=== PATIENT | male | born 2000 | race Caucasian/White ===

== ENCOUNTER 2019-12-10 00:31 | Emergency (ER) | payer BC, SELFPAY ==
[2019-12-10 00:32] VITALS: BP 140/72; PULSE 55; RESP 16; TEMP 36.4; O2SAT 100; BMI 26.1
--- NOTE | 2019-12-10 01:44 | EKG12_ITS ---
Test Reason : CP Blood Pressure : / mmHG Vent. Rate : 053 BPM Atrial Rate : 053 BPM P-R Int : 162 ms QRS Dur : 094 ms QT Int : 420 ms P-R-T Axes : 013 018 033 degrees QTc Int : 394 ms Sinus bradycardia Otherwise normal ECG Confirmed by MARIAJOSE GROVE ([id number]), sound editor SADA CUNNINGHAM ([id number]) on 12/12/2019 9:27:00 AM Referred By: FATUMA Confirmed By:MARIAJOSE GROVE
--- NOTE | 2019-12-10 01:44 | RAD_ITS ---
STUDY: X-RAY CHEST REASON FOR EXAM: Male, 19 years old. C/O LEFT SHOULDER AND LEFT CHEST/UPPER BACK PAIN -- NKI TECHNIQUE: Frontal and lateral views of the chest. COMPARISON: None. FINDINGS: The lungs are clear and expanded. There is no demonstrated pleural abnormality. Normal size heart. Normal mediastinum and zainab. Normal visualized pulmonary arteries. Normal visualized aortic arch and descending thoracic aorta. Normal visualized thoracic spine. Normal visualized ribs, clavicles, and shoulders. There is no demonstrated abnormality of the visualized soft tissue structures of the upper abdomen. RAD/Chest PA and Lateral IMPRESSION: Normal x-ray examination of the chest. Electronically Signed: Monica Scott, at 2:11 EST Tel , Service support ,
--- NOTE | 2019-12-10 01:45 | ED.DCSUM_ITS ---
History of Present Illness Chief Complaint: Upper Extremity Injury Narrative: Patient is a 19-year-old male who presents with left-sided chest pain. This began shortly before presentation while at rest. He complains of sharp left- sided chest pain which is worse with inspiration. He also has some aching in his left shoulder. No shortness of breath. He was recently treated for pertussis with azithromycin. His cough has improved and he is no longer coughing. No fevers or vomiting. No history of DVT or pulmonary embolism. No known coagulopathies. He did have a 13-hour drive about 3 weeks ago and has had some mild discomfort in his right calf. No extremity edema. No history of prior similar symptoms. He does have some reproducible pain with palpation on his left chest. She otherwise denies recent illness or other medical history. Past Medical History - Allergies and Home Meds Allergies/Adverse Reactions: Allergies No Known Allergies Allergy (Verified 12/10/19 00:35) Primary Care Physician: Vinny Liriano MD [Primary Care Provider] - Past Medical History: - - Recently treated for pertussis Smoking Status: Never smoker Review of Systems All systems negative except as indicated General: Denies: Fever Eyes: Denies: Visual changes - bilaterally ENT: Denies: Bilateral ear pain Cardiovascular: Reports: Chest pain Respiratory: Denies: Dyspnea, Cough Gastrointestinal: Denies: Abdominal pain, Nausea, Vomiting Musculoskeletal: Reports: Extremity Pain Skin: Denies: Rash Neurological: Denies: Headache Psych: Denies: Depression Hematologic: Denies: Easy bruising, Easy bleeding Allergy: Denies: Uticaria Physical Exam Vital Signs/Narrative: Vital Signs Temp Pulse Resp BP Pulse Ox 12/10/19 00:32 97.6 F L 55 L 16 140/72 H 100 Inital Vital Signs reviewed: Yes General: Well nourished, Well developed Head: Normocephalic, Atraumatic Eyes: EOMI ENT: Moist mucous membranes Neck: Supple Cardiovascular: Regular rate, Regular rhythm Respiratory: No distress, CTA bilaterally, Chest tenderness - Mild left anterior chest tenderness Abdomen: Soft, Nontender Extremities: Nontender, No edema Skin: Normal color Neurological: Alert Psychological: Normal affect Diagnostic/Tx/Re-eval Impressions Chest X-Ray 12/10/19 01:44 IMPRESSION: Normal x-ray examination of the chest. Electronically Signed: Monica Scott, at 2:11 EST Tel , Service support , Chest CTA 12/10/19 02:15 IMPRESSION: There is no demonstrated pulmonary embolism or arterial dissection. Ill-defined nodular opacities are seen in both lungs more prominent in the right lower lobe suggesting septic emboli or patchy pneumonia. Follow-up is recommended to ensure resolution and to exclude metastasis. Electronically Signed: Monica Scott, at 3:41 EST Tel , Service support , 12/10/19 01:44 Chest PA and Lateral [RAD] Stat 12/10/19 02:15 CTA Chest W/WO Contrast [CT] Stat Laboratory Results 12/10/19 12/10/19 12/10/19 01:52 01:52 01:52 WBC 8.4 RBC 4.71 Hgb 14.2 Hct 40.7 MCV 86.4 MCH 30.1 MCHC 34.9 RDW Std Deviation 36.6 RDW Coeff of Piter 11.6 Plt Count 212 MPV 10.2 Immature Gran % (Auto) 0.100 Neut % (Auto) 68.8 Lymph % (Auto) 17.7 L [place] % (Auto) 10.4 H Eos % (Auto) 2.4 Baso % (Auto) 0.6 Absolute Neuts (auto) 5.8 Absolute Lymphs (auto) 1.48 Nucleated RBC % 0 D-Dimer Quant (PE/DVT) 0.55 H* Sodium 139 Potassium 3.9 Chloride 106 Carbon Dioxide 27.0 Anion Gap 6 BUN 21 H Creatinine 1.25 Estim Creat Clear Calc 100.40 Est GFR (MDRD) Af Amer 95 Est GFR (MDRD) Non-Af 78 BUN/Creatinine Ratio 16.8 Glucose 92 Calcium 9.6 Troponin I < 0.015 - Medical Decision Making EKG shows sinus bradycardia at a rate of 53, no acute ischemic changes. Given patient's report of some right calf pain with recent long car trip pulmonary embolism was considered. Patient was felt to be low risk so I initially obtained a d-dimer. Labs are normal except for minimal elevation of d-dimer. A chest x-ray shows no acute process. Given positive d-dimer a CTA of the chest was obtained. This shows no pulmonary embolism or arterial dissection but does show defined nodular opacities in the right lower lung. Concern was raised for septic emboli versus patchy pneumonia. Patient has no evidence to suggest that this would be related to septic emboli. He has no fever, cough, leukocytosis to suggest infectious process. He has no murmur to suggest endocarditis. Given that he was recently treated for pertussis this may still be a resolving changes related to that. However we will refer to pulmonology for follow-up. Patient understands to return for new or worsening symptoms. He was instructed on specific signs and symptoms to monitor for. All questions answered at bedside. Patient discharged. ED Disposition - Plan for ED Patient: Disposition: Home or Assisted Living Diagnosis: Abnormal chest CT, Chest pain Instructions: CHEST PAIN, Uncertain Cause Referrals: Vinny Liriano MD [Primary Care Provider] - Arnol Lucas MD [STAFF PHYSICIAN] - Additional Instructions: Your CAT scan showed an abnormality in the lower lung which could be related to resolving pneumonia. However it is important that you follow-up for further evaluation. You should return for any new or worsening symptoms including but not limited to fever, shortness of breath, recurrent chest pain.
[2019-12-10 01:53] VITALS: BP 110/74; PULSE 54; RESP 12; O2SAT 99
[2019-12-10 01:59] LABS: Absolute Lymphocyte Count 1.48 X10^3/uL (0.83-4.51); Absolute Neutrophil Count 5.8 X10^3/uL (2.0-7.7); Basophil# 0.05 X10^3/uL; Basophil% 0.6 % (0-1); Eosinophils% 2.4 % (0-5); Hematocrit 40.7 % (40-54); Hemoglobin 14.2 g/dL (13.0-16.5); Lymphocyte # 1.48 X10^3/ul (4.0); Lymphocyte % 17.7 % (19-41); Mean Corp Hgb Conc 34.9 g/dL (32-36); Mean Corpuscular Hgb 30.1 pg (27.0-32.0); Mean Corpuscular Volume 86.4 fL (80-94); Mean Platelet Vol. 10.2 fl (6.2-12.0); Monocyte# 0.87 X10^3/uL; Monocyte% 10.4 % (0-10); NRBC Flagged by Analyzer 0 % (0-5); Neutrophil # 5.77 X10^3/uL (2.7-7.7); Neutrophil % 68.8 % (47-70); Platelet Count 212 K/mm3 (150-450); RBC Distribution Width CV 11.6 % (11.6-14.6); RBC Distribution Width SD 36.6 fl (35.1-43.9); Red Blood Count 4.71 M/mm3 (4.6-6.2); White Blood Count 8.4 K/mm3 (4.4-11.0)
[2019-12-10 02:10] LABS: D-Dimer Quantitative (DVT/PE) 0.55 FEU/ug/m (0.27-0.49)
--- NOTE | 2019-12-10 02:15 | CT_ITS ---
STUDY: CTA CHEST REASON FOR EXAM: Male, 19 years old. ELEVATED D-DIMER. C/O LEFT SHOULDER AND CP LEFT SIDE X 1 HOUR RADIATION DOSAGE (If Supplied By Facility): CTDIvol = ( 8.87 ) mGy, DLP = ( 446.71 ) mGycm TECHNIQUE: The examination was performed with the intravenous administration of IV 100mL Isovue-370. Post-processing of the angiographic images was performed, with multiplanar reformation and 3D reconstruction. Individualized dose optimization techniques were used for this CT. COMPARISON: None. FINDINGS: Normal enhancement of the main pulmonary artery and right and left pulmonary arteries. Normal enhancement of the bilateral peripheral pulmonary arteries. There is no demonstrated pulmonary embolism. Normal thoracic aorta and visualized great vessels. There is no demonstrated aortic dissection. Normal heart and pericardium. Normal mediastinum. Normal hilar regions. Normal visualized trachea and bronchi. The lungs are well expanded. Ill-defined nodular opacities are seen in both lungs more prominent in the right lower lobe suggesting septic emboli or patchy pneumonia. Follow-up is recommended to ensure resolution and to exclude metastasis. Normal pleura. Normal chest wall structures. Normal osseous structures. Normal visualized upper abdomen. CT/CTA Chest W/WO Contrast IMPRESSION: There is no demonstrated pulmonary embolism or arterial dissection. Ill-defined nodular opacities are seen in both lungs more prominent in the right lower lobe suggesting septic emboli or patchy pneumonia. Follow-up is recommended to ensure resolution and to exclude metastasis. Electronically Signed: Monica Scott, at 3:41 EST Tel , Service support ,
[2019-12-10 02:18] LABS: Anion Gap 6 (5-15); BUN 21 mg/dL (7-18); BUN/Creat Ratio 16.8 RATIO (10-20); Calcium,Total 9.6 mg/dL (8.5-10.1); Chloride 106 mmol/L (98-107); Creatinine, Serum 1.25 mg/dL (0.70-1.30); EST Glomerular Filtration Rate 78 mL/min (>60); Est Glom Filt Rate - Afr Amer 95 mL/min (>60); Glucose 92 mg/dL (74-106); Potassium 3.9 mmol/L (3.5-5.1); Sodium Level 139 mmol/L (136-145)
[2019-12-10 03:52] VITALS: BP 114/74; PULSE 56; RESP 20; O2SAT 98
== END 2019-12-10 03:57 | disposition home or self-care (01) ==
PROVIDERS: Emergency Provider Emergency Medicine; PCP Pediatrics
DX: R07.1 Chest pain on breathing (principal); R91.8 Other nonspecific abnormal finding of lung field
CPT/HCPCS: 71046; 71275; 80048; 84484; 85025; 85379; 93005; 99283; Q9967

== ENCOUNTER → 2020-01-02 13:42 | Outpatient (CLI) | payer BC, SELFPAY ==
[2019-12-10 12:21] VITALS: BMI 25.9
--- NOTE | 2020-01-02 13:47 | EKG12_ITS ---
Test Reason : SOB Blood Pressure : / mmHG Vent. Rate : 056 BPM Atrial Rate : 056 BPM P-R Int : 148 ms QRS Dur : 092 ms QT Int : 404 ms P-R-T Axes : 023 028 037 degrees QTc Int : 389 ms Sinus bradycardia Otherwise normal ECG Confirmed by JEFFERY ZHANG, GABRIELE ([id number]), state editor SADA CUNNINGHAM ([id number]) on 01/07/2020 1:13:31 PM Referred By: Don Vanessa Confirmed By:GABRIELE GIL MD
--- NOTE | 2020-01-02 13:49 | RAD_ITS ---
EXAM DESCRIPTION: Normal PA and lateral chest CLINICAL HISTORY: 19 years Male, dyspnea dyspnea COMPARISON: Previous chest obtained 12/10/2019 FINDINGS: The thorax is intact. The heart and mediastinum appear to be within normal limits. The lungs appear to be well areated without evidence of pneumonic consolidation or pleural effusion. RAD/Chest PA and Lateral IMPRESSION: Normal PA and lateral chest Electronically Signed: Shemar Felix, at 16:19 EST Tel , Service support ,
== END ==
PROVIDERS: PCP Pediatrics; Referring Provider Family Medicine; Visit Provider Family Medicine
DX: R06.00 Dyspnea, unspecified (principal)
CPT/HCPCS: 71046; 93005

== ENCOUNTER 2020-01-03 04:06 | Observation (INO) | payer BC, SELFPAY ==
[2019-12-10 12:21] VITALS: BMI 25.9
[2020-01-03] VITALS (10 sets, daily range): BP systolic 109–127; BP diastolic 61–82; PULSE 56–88; RESP 14–24; TEMP 36.2–37; O2SAT 98–100; BMI 25.8; BMI 25.2
--- NOTE | 2020-01-03 04:16 | EKG12_ITS ---
Test Reason : CP Blood Pressure : / mmHG Vent. Rate : 066 BPM Atrial Rate : 066 BPM P-R Int : 150 ms QRS Dur : 090 ms QT Int : 396 ms P-R-T Axes : 013 027 039 degrees QTc Int : 415 ms Normal sinus rhythm with sinus arrhythmia Minimal voltage criteria for LVH, may be normal variant Borderline ECG Confirmed by JEFFERY ZHANG, GABRIELE ([id number]), food editor HERMINIA WILKINS ([id number]) on 01/05/2020 10:11:28 AM Referred By: MR Confirmed By:GABRIELE GIL MD
[2020-01-03] MEDS: Aspirin 81 MG TAB.CHEW 324 MG PO (04:23)
[2020-01-03 04:39] LABS: Absolute Lymphocyte Count 1.68 X10^3/uL (0.83-4.51); Absolute Neutrophil Count 8.5 X10^3/uL (2.0-7.7); Basophil# 0.08 X10^3/uL; Basophil% 0.6 % (0-1); Eosinophil# 1.64 X10^3/uL; Eosinophils% 12.5 % (0-5); Hemoglobin 13.3 g/dL (13.0-16.5); Lymphocyte # 1.68 X10^3/ul (4.0); Lymphocyte % 12.8 % (19-41); Mean Corp Hgb Conc 33.3 g/dL (32-36); Mean Corpuscular Hgb 28.9 pg (27.0-32.0); Monocyte# 1.12 X10^3/uL; Monocyte% 8.5 % (0-10); NRBC Flagged by Analyzer 0 % (0-5); Neutrophil # 8.51 X10^3/uL (2.7-7.7); Neutrophil % 65.1 % (47-70); Platelet Count 252 K/mm3 (150-450); RBC Distribution Width CV 11.5 % (11.6-14.6); RBC Distribution Width SD 36.2 fl (35.1-43.9); White Blood Count 13.1 K/mm3 (4.4-11.0)
[2020-01-03 04:47] LABS: D-Dimer Quantitative (DVT/PE) 3.48 FEU/ug/m (0.27-0.49)
[2020-01-03 04:54] LABS: Anion Gap 6 (5-15); BUN 19 mg/dL (7-18); BUN/Creat Ratio 17.3 RATIO (10-20); Chloride 102 mmol/L (98-107); EST Glomerular Filtration Rate 91 mL/min (>60); Erythrocyte Sedimentation Rate 13 mm/hr (0-15); Est Glom Filt Rate - Afr Amer 110 mL/min (>60); Estimated Creatinine Clearance 114.09 ml/min; Glucose 115 mg/dL (74-106); Potassium 4.2 mmol/L (3.5-5.1); Sodium Level 137 mmol/L (136-145)
--- NOTE | 2020-01-03 05:05 | CT_ITS ---
HISTORY: + D-DIMER, NEW HEART MURMUR, PLEURITIC PAIN, PRIOR CT SHOWED ILL DEFINED NODULAR OPACITIES B/L SUGGESTING SEPTIC EMBOLI VS. PATCHY PNEUMONIA VS. NEOPLASM. ADDITIONAL HISTORY: None provided. TECHNIQUE: CT angiogram images of the chest were obtained with 100 mL Isovue-370 IV contrast as per pulmonary angiogram protocol. 3D MIP images used to aid in evaluation for pulmonary embolism. Number of images including paperwork: 1162 A radiation dose optimization technique was used for this scan. COMPARISON: 12/10/2019 FINDINGS: PULMONARY ARTERIES: No pulmonary arterial filling defects. AORTA AND GREAT VESSELS: No dissection. HEART/PERICARDIUM: Normal heart size. Small amount of pericardial fluid. MEDIASTINUM: Unremarkable. ADENOPATHY: Mild mediastinal and right hilar adenopathy. THYROID: Unremarkable visualized portions. LUNG PARENCHYMA: No dense consolidation. Dependent bilateral lower lobe opacities, left greater than right, suggestive of atelectasis. Numerous small peripheral lung nodules are seen measuring 3 mm or less in size, decreased compared to the prior examination.. PLEURAL SPACES: Trace right pleural fluid. Small left pleural effusion. UPPER ABDOMEN: Unremarkable. OSSEOUS AND SOFT TISSUE STRUCTURES: No acute skeletal findings. CT/CTA Chest W/WO Contrast IMPRESSION: 1. No pulmonary embolus detected. 2. Decrease in bilateral lung nodules, likely infectious in nature. 3. Small bilateral pleural effusions. Individualized dose optimization techniques were used for this CT. at 0605 Reported and signed by: Lilibeth Mejia MD Electronically Signed: Lilibeth Mejia MD at 6:05 EST Tel , Service support ,
--- NOTE | 2020-01-03 05:28 | HP.PCM_ITS ---
History of Present Illness Date of Admission: 01/03/20 Chief Complaint: chest pain The patient is a 19 year old M with no significant PMH who was admitted via the ED with a complaint of chest pain. Chest pain had been going on for a few days; it was retrosternal, sharp, aggravated by exertion and and by laying down flat and relieved by sitting up and resting. He has not had pain like this before. He denied any assisted shortness of breath, palpitations, dizziness, nausea vomiting, fever chills or abdominal pain. Review of systems otherwise negative. Patient says he had whooping cough in September 2019 and he started having chest pain afterwards. He was seen in the ED in early December 2019 where a CTA done was negative for PE but showed no low opacities and a CTA which could be infectious versus inflammatory. He was therefore referred to pulmonology. He saw pulmonology on 12/11/2019 and he had an exhaled nitric oxide level in the office, and had no symptoms or signs of systemic infection that would raise concern for septic pulmonary emboli. Plan per pulmonology was repeated noncontrast CT scan in 2 months time. At the time he was seen in the ED on December 07, 2019, it was categorically documented that patient did not have a murmur at that time. On admission in the ED, patient was found to have temperature of 97.1 with blood pressure 127/82 respiratory rate of 24. Pulse rate was 64. Chemistry was unremarkable initial troponin was negative. CBC showed WBC of 13.1 was otherwise unremarkable. EKG done showed no acute ST changes. CTA was done and results were pending blood per my independent review showed no evidence of a PE. He has been admitted to be managed for chest pain of unclear etiology. [] Past Medical History Allergies No Known Allergies Allergy (Verified 12/10/19 00:35) Home Medications: Ambulatory Orders Medication Instructions Recorded NK 12/10/19 Surgical History: no surgical history Psychiatric History: No pertinent psych hx Lives: Roommate Smoking Status: Never smoker Tobacco Use: Non-smoker Alcohol: None Drugs: None - *Family History Maternal History Items: No pertinent history Paternal History Items: No pertinent history Review of Systems Constitutional: Denies: Chills, Fever, Malaise, Weakness, Weight Change Eyes: Denies: Blurred vision HEENT: Denies: Head Aches, Sinus Congestion, Sinus Drainage Cardiovascular: Reports: Chest Pain. Denies: Chest Pressure, Chest Tightness, Edema, Heaviness, Light Headedness, Orthopnea, Palpitations, Paroxysmal Noc. Dyspnea, Syncope Respiratory: Denies: Cough, Shortness of Breath, Shortness of breath at rest, Shortness of breath upon exertion, Sputum production Gastrointestinal: Denies: Abdominal Pain, Nausea, Vomiting Genitourinary: Denies: Dysuria Musculoskeletal: Denies: Joint Pain, Joint Tenderness Skin: Denies: Rash, Wounds Neurological: Denies: Numbness, Tingling, Focal weakness Psychiatric: Denies: Anxiety, Depression, Homicidal Ideations, Suicidal Ideations Hematologic/ Lymphatic: Denies: Easy Bruising, Easy Bleeding VTE Information - Inpt Only VTE Present on Admission: No VTE Pharm Prophylaxis ordered?: Yes - Physical Exam Vitals/I&O's: Vital Signs Temp Pulse Resp BP Pulse Ox 97.1 F L 64 24 H 127/82 H 100 01/03/20 04:07 01/03/20 04:07 01/03/20 04:07 01/03/20 04:07 01/03/20 04:07 Oxygen Delivery Method Room Air Weight: 185 lb 6.54 oz Body Mass Index (BMI) 25.8 General: Alert, Oriented x3, Cooperative HEENT: Atraumatic, PERRLA, EOMI, Normocephalic Oral: Dry Mucosa Neck: Supple, No JVD, Negative Carotid Bruits Lungs: Clear to auscultation, Normal air movement, No rhonchi, No wheeze, No rales Cardiovascular: Regular rate, Regular Rhythm, Normal S1, Normal S2, - - grade 2- 3 systolic murmur audible in tricupid and mitral valve areas, loudest in mitral valve area, nonradiating Abdomen: Bowel Sounds Present, Soft, Non Tender, Non-Distended, No Hepato- splenomegaly Extremities: No clubbing, No cyanosis, No edema, Capillary Refill Less than 3 Seconds Skin: No rashes, No breakdown Musculoskeletal: No Tenderness to Palpation of Joints or Extremities Lymphatic: No Cervical, Supraclavicular, or Inguinal Adenopathy Neurological: Cranial nerves II-XII grossly intact, Neuro grossly intact, Motor Exam 5/5 strength throughout Psych/Mental Status: Normal Affect, Appropriate, Alert and oriented to time, place, person, mood and affect Laboratory Results 01/03/20 04:30: WBC 13.1 H, RBC 4.60, Hgb 13.3, Hct 40.0, MCV 87.0, MCH 28.9, MCHC 33.3, RDW Std Deviation 36.2, RDW Coeff of Piter 11.5 L, Plt Count 252, MPV 10.0, Immature Gran % (Auto) 0.500, Neut % (Auto) 65.1, Lymph % (Auto) 12.8 L, [place] % (Auto) 8.5, Eos % (Auto) 12.5 H, Baso % (Auto) 0.6, Absolute Neuts (auto) 8.5 H, Absolute Lymphs (auto) 1.68, Nucleated RBC % 0, ESR 13 01/03/20 04:30: D-Dimer Quant (PE/DVT) 3.48 H* 01/03/20 04:30: Sodium 137, Potassium 4.2, Chloride 102, Carbon Dioxide 29.0, Anion Gap 6, BUN 19 H, Creatinine 1.10, Estim Creat Clear Calc 114.09, Est GFR (MDRD) Af Amer 110, Est GFR (MDRD) Non-Af 91, BUN/Creatinine Ratio 17.3, Glucose 115 H, Calcium 9.0, Troponin I < 0.015 Assessment/Plan 19 y/o admitted with a complaint of chest pain. 1. Chest pain and new onset murmur * suspicious for infective endocarditis * was seen on December 07 2019, with CTA then showing ill-defined nodular opacities in both lungs more prominent in the right lower lobe suggesting septic emboli or patchy pneumonia. He followed up with pulmonology who did not think that patient would have septic emboli. Infectious pathology. Recommended follow-up CT in 2 months. * Patient now has new onset murmur loudest in the mitral valve area there is also audible in the tricuspid area. He has no history of drug use. * Will admit to PCU. * To have 2D echo done today to evaluate for vegetations on the valves. * CTA done and reading is pending. * Another consideration is also pericarditis as patient states pain is worse with lying down and relieved by sitting up. Will await 2D echo findings and consider starting high-dose aspirin if infective endocarditis is ruled out. * 2. SIRS criteria * WBC is elevated at 13 and patient is tachypneic so SIRS criteria is 2 out of 4. There is no clear evidence of infection now. Will monitor * Will get blood cultures. * DVT prophylaxis: Lovenox Code Visit OBSV E&M: 73420 Initial observation care L3
--- NOTE | 2020-01-03 06:04 | ED.VIS.CHEST ---
History of Present Illness Chief Complaint: Chest Pain Informant: Patient Narrative: Patient presenting for evaluation secondary to chest pain. Patient reports that he had a history of having pertussis back in September. Since then he has been dealing with a cough and intermittent chest pain. Patient was actually seen in the emergency department for this in early December, had a positive d-dimer and had a CT angiogram. CT angiogram demonstrated him to have some abnormal infiltrates which were concerning for multilobar pneumonia versus the possibility of septic emboli. He had subsequent follow-up with pulmonology and that felt this to be resolving pneumonia, and he was recommended a 2-month follow-up CT scan. Patient states that he has been having progressively worsening chest pain however. He states that this is sharp and pleuritic in nature. He states that it causes him shortness of breath due to a feeling of a inability to take a deep breath. He denies any fevers chills night sweats or unintended weight loss. Patient denies that he has been having any sort of hemoptysis. He denies any recent new infectious symptoms such as fever. Patient denies any DVT or PE risk factors. He denies any cardiovascular risk factors. Past Medical History - Allergies and Home Meds Allergies/Adverse Reactions: Allergies No Known Allergies Allergy (Verified 12/10/19 00:35) Primary Care Physician: Lukas Tee MD [Primary Care Provider] - Past Medical History: - - Past history of pertussis Surgical History: no surgical history Lives: Roommate Smoking Status: Never smoker Alcohol: None Drugs: None - Family History Maternal Family History: Reports: No pertinent history Paternal Family History: Reports: No pertinent history Review of Systems All systems negative except as indicated General: Denies: Chills, Fever, Malaise, Weight loss Eyes: Denies: Visual changes - bilaterally, Diplopia ENT: Denies: Rhinorrhea, Sore throat Cardiovascular: Reports: Chest pain Respiratory: Reports: Dyspnea Gastrointestinal: Denies: Abdominal pain, Nausea, Vomiting, Diarrhea, Melena, Hematochezia Genitourinary: Denies: Dysuria, Hematuria, Frequency Musculoskeletal: Denies: Back pain, Extremity Pain Skin: Denies: Rash, Wounds Neurological: Denies: Headache, Weakness, Numbness Physical Exam Vital Signs/Narrative: Vital Signs Temp Pulse Resp BP Pulse Ox 01/03/20 04:07 97.1 F L 64 24 H 127/82 H 100 Inital Vital Signs reviewed: Yes General: Well nourished, Well developed, No Acute Distress Head: Normocephalic, Atraumatic Eyes: Perrl, EOMI ENT: Moist mucous membranes, No rhinorrhea Neck: Supple, Nontender Cardiovascular: Murmur - 3 out of 6 systolic murmur is noted Respiratory: No distress, CTA bilaterally, Chest nontender Abdomen: Soft, Nontender, Nondistended, Normal bowel sounds Back: Nontender, Normal Inspection Extremities: Nontender, No edema Skin: Normal color, No rash Neurological: Alert, Oriented x3, Cranial nerves II-XII grossly intact, Normal Strength, Normal Sensation Psychological: Normal affect, Normal Mood Diagnostic/Tx/Re-eval Chest X-Ray - ED: 2 View, Read by ED Physician, Read by Radiologist, - - X-ray performed yesterday demonstrates no evidence of acute process by my personal interpretation as well as radiology - EKG Initial EKG Interpretation: - - Sinus rhythm at 66 with evidence of some LVH but isoelectric ST segments normal T waves no evidence of acute ischemia or arrhythmia. - Medical Decision Making Patient presented secondary to chest pain. I reviewed the patient's records, he has had a reasonable work-up recently, but states that his pain is getting worse. I also reviewed his physical exams, and they specifically stated that the patient does not have any cardiac murmurs and I very clearly can hear the patient has a cardiac murmur on this visit. Repeat work-up was obtained including d-dimer. CBC chemistry troponin were unremarkable, but d-dimer was found to be elevated. I reviewed the patient's chest x-ray that was performed yesterday and it is negative. CT angiogram of the chest was performed which by my personal review does not seem to show any evidence of PE but does demonstrate evidence of a left-sided pleural effusion which appears to be new. Given the patient's pleural effusion worsening of chest pain as well as a new onset of cardiac murmur I believe that he requires admission. I discussed this with hospitalist and the patient will be admitted. ED Disposition - Plan for ED Patient: Disposition: Acute Care Hospital [facility] Diagnosis: Chest pain, Heart murmur, Pleural effusion
--- NOTE | 2020-01-03 06:52 | EKG12_ITS ---
Test Reason : CP Blood Pressure : / mmHG Vent. Rate : 064 BPM Atrial Rate : 064 BPM P-R Int : 152 ms QRS Dur : 092 ms QT Int : 390 ms P-R-T Axes : 022 039 053 degrees QTc Int : 402 ms Normal sinus rhythm Normal ECG Confirmed by JONE ZHANG, JEREMY ([id number]), proposal editor SADA CUNNINGHAM ([id number]) on 01/07/2020 2:00:32 PM Referred By: KELLI Confirmed By:JEREMY BECERRIL MD
[2020-01-03 11:19] LABS: AST(SGOT) 15 U/L (15-37); Alanine Aminotransfer ALT/SGPT 20 U/L (16-61); Albumin, Serum 3.9 g/dL (3.2-5.0); Alkaline Phosphatase 117 U/L (45-117); Bilirubin, Direct 0.18 mg/dL (0.00-0.30); GGTP 15 U/L (15-85); Globulin 3.6 g/dL (2.2-4.2); Protein, Total 7.5 g/dL (6.4-8.2)
--- NOTE | 2020-01-03 11:21 | PN_ITS ---
Patient Problems: Active and Suspected Problems (Last Reviewed 12/11/19 @ 07:19 by Leena Martínez) Chest pain (Acute) Heart murmur (Acute) Pleural effusion (Acute) Reason for Visit: Chest pain Objective: Complaint of chest pain, midsternal to left side with radiation to left side of the neck and ears. Patient also had new onset of murmur. Had seen production broacher for abnormal CT chest was told noninfectious. Vitals/I&O's: Vital Signs Temp Pulse Resp BP Pulse Ox 98.6 F 56 L 18 119/75 98 01/03/20 07:03 01/03/20 07:04 01/03/20 07:03 01/03/20 07:03 01/03/20 08:37 Oxygen Delivery Method Room Air Weight: 180 lb 8.937 oz Body Mass Index (BMI) 25.2 General: Alert, Oriented x3, Cooperative HEENT: Atraumatic, PERRLA, EOMI, Normocephalic Neck: Supple, No JVD, Negative Carotid Bruits Lungs: Clear to auscultation, No rhonchi, No wheeze, No rales, Diminished Cardiovascular: Regular rate, Regular Rhythm, Normal S1, Normal S2, Murmur - Systolic murmur present over apex and left lower sternal border Abdomen: Bowel Sounds Present, Soft, Non Tender Extremities: No edema, Capillary Refill Less than 3 Seconds Skin: No rashes, No breakdown Musculoskeletal: No Tenderness to Palpation of Joints or Extremities Neurological: Cranial nerves II-XII grossly intact Psych/Mental Status: Normal Affect, Appropriate Laboratory Results 01/03/20 04:30: WBC 13.1 H, RBC 4.60, Hgb 13.3, Hct 40.0, MCV 87.0, MCH 28.9, MCHC 33.3, RDW Std Deviation 36.2, RDW Coeff of Piter 11.5 L, Plt Count 252, MPV 10.0, Immature Gran % (Auto) 0.500, Neut % (Auto) 65.1, Lymph % (Auto) 12.8 L, [place] % (Auto) 8.5, Eos % (Auto) 12.5 H, Baso % (Auto) 0.6, Absolute Neuts (auto) 8.5 H, Absolute Lymphs (auto) 1.68, Nucleated RBC % 0, ESR 13 01/03/20 04:30: D-Dimer Quant (PE/DVT) 3.48 H* 01/03/20 04:30: Sodium 137, Potassium 4.2, Chloride 102, Carbon Dioxide 29.0, Anion Gap 6, BUN 19 H, Creatinine 1.10, Estim Creat Clear Calc 114.09, Est GFR (MDRD) Af Amer 110, Est GFR (MDRD) Non-Af 91, BUN/Creatinine Ratio 17.3, Glucose 115 H, Calcium 9.0, Troponin I < 0.015 01/03/20 08:00: Troponin I < 0.015 01/03/20 10:20: Troponin I < 0.015 01/03/20 10:20: Total Bilirubin 0.70, Direct Bilirubin 0.18, GGT 15, AST 15, ALT 20, Alkaline Phosphatase 117, Total Protein 7.5, Albumin 3.9, Globulin 3.6 01/03/20 10:50: Urine Opiates Screen Pending, Urine Methadone Screen Pending, Ur Barbiturates Screen Pending, Ur Phencyclidine Scrn Pending, Ur Amphetamines Screen Pending, U Methamphetamin-MDMA Pending, U Benzodiazepines Scrn Pending, Urine Cocaine Screen Pending, U Cannabinoids Screen Pending, Ur Drug Screen Comment Current Medications Aspirin (Ecotrin) 81 mg PO DAILY@0800 [place]ENCHO Glucagon () 1 mg IM .X1 PRN PRN Reason: Hypoglycemia Sodium Chloride () 250 mls @ 15 mls/hr IV .[id number] PRN PRN Reason: Saline Flush Sodium Chloride () 250 mls @ 15 mls/hr IV .[id number] PRN PRN Reason: Additional IVPB Infusion Dextrose (Dextrose 10%-Water) 250 mls @ 999 mls/hr IV .Q16M PRN; Protocol PRN Reason: HYPOGLYCEMIA Ibuprofen (Motrin) 400 mg PO Q4H PRN PRN PRN Reason: Pain Score 1-10/Temp > 100.7 F Nitroglycerin (Nitrostat) 0.4 mg SUBLINGUAL Q5M PRN PRN Reason: CARDIAC/CHEST PAIN Ondansetron HCl (Zofran) 4 mg IV Q8H PRN PRN PRN Reason: NAUSEA/VOMITING Sodium Chloride () 10 - 40 ml IV UD PRN PRN Reason: SALINE FLUSH STROKE Vital Signs/Narrative: Vital Signs Pulse Ox 01/03/20 08:37 98 Medical Necessity - Tobacco Use Smoking Status: Never smoker Tobacco Use: Non-smoker Assessment/Plan All Active Problems (Last Reviewed 12/11/19 @ 07:19 by Leena Martínez) Chest pain (Acute) Heart murmur (Acute) Pleural effusion (Acute) This is a 19 y/o admitted with a complaint of midsternal chest pain with radiation to neck and left ear. Chest pain. 1. Chest pain and new onset murmur: Patient is being admitted in PCU. Serial troponin enzymes are negative. 2D echo was done 2D echo shows EF 65% with a normal lateral systolic function, mild MR, mild TR. Mild pulmonary insufficiency. Small left pleural effusion. RVSP 24 mmHg. There is no obvious vegetation found. Earlier patient was seen in pulmonary clinic on December 07, 2019 with CTA finding of ill-defined nodular opacities in both lungs more prominent in the right lower lobe suggesting septic emboli or patchy pneumonia. He followed up with pulmonology who did not think that patient would have septic emboli. Recommended follow-up CT in [address] abdomen was done and shows decreasing bilateral lung nodules likely infectious in nature. Small bilateral pleural effusions. * * 2. SIRS criteria with leukocytosis and tachypnea: Currently patient is on baseline no fever or chills. No hypoxia or tachypnea. No clear evidence of infection. Monitor temperature. * Blood culture ordered. If patient spikes temperature will need start of antibiotic. DVT prophylaxis: Lovenox Clinical Impression(s) from Imaging Studies Chest CTA 01/03/20 05:05 IMPRESSION: 1. No pulmonary embolus detected. 2. Decrease in bilateral lung nodules, likely infectious in nature. 3. Small bilateral pleural effusions. Individualized dose optimization techniques were used for this CT. * Laboratory Results 01/03/20 04:30: WBC 13.1 H, RBC 4.60, Hgb 13.3, Hct 40.0, MCV 87.0, MCH 28.9, MCHC 33.3, RDW Std Deviation 36.2, RDW Coeff of Piter 11.5 L, Plt Count 252, MPV 10.0, Immature Gran % (Auto) 0.500, Neut % (Auto) 65.1, Lymph % (Auto) 12.8 L, [place] % (Auto) 8.5, Eos % (Auto) 12.5 H, Baso % (Auto) 0.6, Absolute Neuts (auto) 8.5 H, Absolute Lymphs (auto) 1.68, Nucleated RBC % 0, ESR 13 01/03/20 04:30: D-Dimer Quant (PE/DVT) 3.48 H* 01/03/20 04:30: Sodium 137, Potassium 4.2, Chloride 102, Carbon Dioxide 29.0, Anion Gap 6, BUN 19 H, Creatinine 1.10, Estim Creat Clear Calc 114.09, Est GFR (MDRD) Af Amer 110, Est GFR (MDRD) Non-Af 91, BUN/Creatinine Ratio 17.3, Glucose 115 H, Calcium 9.0, Troponin I < 0.015 01/03/20 08:00: Troponin I < 0.015 01/03/20 10:20: Troponin I < 0.015 01/03/20 10:20: Total Bilirubin 0.70, Direct Bilirubin 0.18, GGT 15, AST 15, ALT 20, Alkaline Phosphatase 117, Total Protein 7.5, Albumin 3.9, Globulin 3.6 01/03/20 10:50: Urine Opiates Screen NEGATIVE, Urine Methadone Screen NEGATIVE, Ur Barbiturates Screen NEGATIVE, Ur Phencyclidine Scrn NEGATIVE, Ur Amphetamines Screen NEGATIVE, U Methamphetamin-MDMA NEGATIVE, U Benzodiazepines Scrn NEGATIVE, Urine Cocaine Screen NEGATIVE, U Cannabinoids Screen NEGATIVE, Ur Drug Screen Comment
[2020-01-03 11:27] LABS: Amphetamine Urine VISTA NEGATIVE (<1000 ng/mL); Barbiturate Urine VISTA NEGATIVE (< 200 ng/mL); Benzodiazepine Urine VISTA NEGATIVE (< 200 ng/mL); Cocaine Urine VISTA NEGATIVE (< 300 ng/mL); Ecstacy Urine VISTA NEGATIVE (< 500 ng/mL); Methadone Urine VISTA NEGATIVE (< 300 ng/mL); PCP Urine VISTA NEGATIVE (< 25 ng/mL); THC Urine VISTA NEGATIVE (< 50 ng/mL); Vista UDS pH Range 6
--- NOTE | 2020-01-03 16:03 | CON.PCM_ITS ---
Problem List (1) Chest pain Status: Acute (2) Heart murmur Status: Acute (3) Pleural effusion Status: Acute Reason for Consult Date of Consultation: 01/03/20 History of Present Illness: The patient is a 19 year old white male who is previously been healthy until the fall 2018 at which time he was diagnosed with pertussis/whooping cough who presents for evaluation of recurrent chest discomfort and subsequent concerns of a cardiac murmur and a pleural effusion. He states that in the fall 2018 based upon ongoing concerns with some respiratory illness and coughing he was subsequently diagnosed with pertussis/whooping cough. He states he was treated. This year he has been having episodes of left-sided chest discomfort. He notes his left-sided chest discomfort tends to increase with deep inspiration and changes in position including at times being in the supine position. He states when he is sitting upright and not taking deep breaths he feels more comforta ble. He describes his discomfort as a sharp discomfort that can radiate from his lower rib cage area up to his neck, left shoulder, and left upper extremity. He states he has not had any significant sensation of shortness of breath nor has he had ongoing coughing or sputum production. There is been no associated nausea, emesis, or diarrhea. He has had no ongoing diaphoresis, palpitations, near-syncope, or syncope. There is been no fever, chills, or night sweats. He also denies any findings such as visual changes, rashes, and has not been noted on examination to demonstrate any findings compatible with splinter hemorrhages. He also believes he has been A. fib our. He states that he has had waxing and waning discomforts. He notes when he ceased his physical activity, which includes [employer] baseball practice, he felt better for a brief period of time. However after resuming practice he states his discomfort has gotten worse again. Based upon his worsening discomfort he presented back to the hospital for reevaluation. He was evaluated by the emergency department staff and internal medicine. He had troponin I levels performed which were negative. An ECG demonstrated sinus rhythm with no acute ECG changes. He had follow-up chest x-ray/chest CT scan. On his chest CT scan there were concerns of bilateral pleural effusions with the left being greater than the right. Based upon concerns of the finding of a cardiac murmur he had a transthoracic echocardiogram performed. The results are as noted below. [] Past Medical History Allergies/Adverse Reactions: Allergies No Known Allergies Allergy (Verified 12/10/19 00:35) Home Medications: Ambulatory Orders Medication Instructions Recorded NK 12/10/19 Surgical History: no surgical history Psychiatric History: No pertinent psych hx - *Family History Maternal History Items: No pertinent history Paternal History Items: No pertinent history Lives: Roommate Smoking Status: Never smoker Tobacco Use: Non-smoker Alcohol: None Drugs: None Review of Systems - Review of Systems General: Denies: Fever, Night Sweats, Fatigue Cardiovascular: Reports: Chest Discomfort - Chest discomfort: Sharp: With deep inspiration. Denies: Shortness of Breath, Orthopnea, PND, Peripheral Edema, Palpitations, Lightheadedness, Dizziness, Near Syncope, Syncope Respiratory: Denies: Cough, Sputum Production, Hemoptysis Gastrointestinal: Denies: Hematemesis, Hematochezia, Melena Genitourinary: Denies: Dysuria, Hematuria Skin: Denies: Rash Subjectve: This is a healthy-appearing 19-year-old white male who appears to be resting comfortably at this time in no acute distress. Objective: Vital Signs Temp Pulse Resp BP Pulse Ox 98.1 F 88 14 109/61 99 01/03/20 13:00 01/03/20 14:55 01/03/20 13:00 01/03/20 13:00 01/03/20 13:00 Oxygen Delivery Method Room Air Weight: 180 lb 8.937 oz Body Mass Index (BMI) 25.2 Intake and Output for Last 24 Hours 01/01/20 01/02/20 01/03/20 23:59 23:59 23:59 Intake Total 480 / 480 Balance 480 / 480 General: Healthy Appearing, Awake, Alert, Oriented x 3, Cooperative, No Acute Distress HEENT: Atraumatic, Normocephalic, PERRL, EOMI, Sclera Non Icteric Oral: Moist Mucosa Neck: Supple, Good ROM, No JVD Lungs: Diminished Left Base Cardiovascular: Regular Rhythm, Normal S1, Normal S2 Murmur Murmur: Grade 2/6, Soft, Holosystolic, LLSB, [place] Vascular: No Carotid Bruits Abdomen: Bowel Sounds Present, Soft, Non Tender Extremities: No Cyanosis, No Clubbing, No edema, - - No obvious splinter hemorrhages appreciated Skin: No Rashes Neurological: No Focal Motor or Sensory Deficit Psych/Mental Status: Appropriate 01/03/20 04:30: WBC 13.1 H, RBC 4.60, Hgb 13.3, Hct 40.0, MCV 87.0, MCH 28.9, MCHC 33.3, Plt Count 252, MPV 10.0, Immature Gran % (Auto) 0.500, Neut % (Auto) 65.1, Lymph % (Auto) 12.8 L, [place] % (Auto) 8.5, Eos % (Auto) 12.5 H, Baso % (Auto) 0.6, Absolute Neuts (auto) 8.5 H, Nucleated RBC % 0 01/03/20 04:30: D-Dimer Quant (PE/DVT) 3.48 H* 01/03/20 04:30: Sodium 137, Potassium 4.2, Chloride 102, Carbon Dioxide 29.0, Anion Gap 6, BUN 19 H, Creatinine 1.10, Est GFR (MDRD) Af Amer 110, Est GFR (MDRD) Non-Af 91, BUN/Creatinine Ratio 17.3, Glucose 115 H, Calcium 9.0, Troponin I < 0.015 01/03/20 08:00: Troponin I < 0.015 01/03/20 10:20: Troponin I < 0.015 01/03/20 10:20: Total Bilirubin 0.70, Direct Bilirubin 0.18 Rhythm: Sinus rhythm EKG: Sinus rhythm; no acute ECG changes ECHO: 01-03-2020 Normal left ventricular size, wall motion, and systolic function The estimated LVEF is 65% Mild MR/TR/TN Echo lucency compatible with a pleural effusion Estimated RV systolic pressure 24 mmHg No evidence of decreased diastolic compliance CXR: 01-02-2020 FINDINGS: The thorax is intact. The heart and mediastinum appear to be within normal limits. The lungs appear to be well areated without evidence of pneumonic consolidation or pleural effusion. Chest CT Scan: 01-03-2020 FINDINGS: PULMONARY ARTERIES: No pulmonary arterial filling defects. AORTA AND GREAT VESSELS: No dissection. HEART/PERICARDIUM: Normal heart size. Small amount of pericardial fluid. MEDIASTINUM: Unremarkable. ADENOPATHY: Mild mediastinal and right hilar adenopathy. THYROID: Unremarkable visualized portions. LUNG PARENCHYMA: No dense consolidation. Dependent bilateral lower lobe opacities, left greater than right, suggestive of atelectasis. Numerous small peripheral lung nodules are seen measuring 3 mm or less in size, decreased compared to the prior examination.. PLEURAL SPACES: Trace right pleural fluid. Small left pleural effusion. UPPER ABDOMEN: Unremarkable. OSSEOUS AND SOFT TISSUE STRUCTURES: No acute skeletal findings. Assessment/Plan 1. Chest pain The patient has an atypical chest discomfort. It is atypical from a cardiac standpoint as it is brought out by inspiration and/or change in position and has a sharp characteristic to it. These symptoms, especially in light of his recent pulmonary related issue and findings of bilateral pleural effusions being more prominent on the left than the right, may be compatible with an underlying pleuritic component. His chest discomfort, despite the positional changes reported, does not appear to be classic for acute pericarditis at this time. So, he does not appear to have any obvious findings on examination such as a pericardial rub and no obvious findings on electrocardiogram or changes in his underlying cardiac enzymes that would go along with the diagnosis of acute pericarditis at this time. Also, his clinical presentation does not appear classic for concerns of underlying premature CAD or congenital coronary anomalies that would be bringing out symptoms of myocardial ischemia or other cardiovascular related symptoms/events at rest or with exertion. He has been an active young man and plays sports and is never had a report of any concerning symptoms from a cardiovascular standpoint at rest or with his exertional activities that would raise suspicion of underlying premature CAD or congenital coronary anomalies, etc. At the present time he can continue to be monitored. He should be considered for further evaluation by pulmonology based upon his history, examination, and objective findings. There are no immediate plans for additional cardiovascular diagnostic studies/intervention at this time. In the interim it appears he has been prescribed medical management with nonsteroidal anti-inflammatory therapy. 2. Cardiac murmur He does have a cardiac murmur on examination. Based upon his examination this may be compatible with underlying mitral valve regurgitation. His transthoracic echocardiogram does suggest mild regurgitation/insufficiency of the mitral, tricuspid, and pulmonic valves. It did not appear to suggest any obvious findings, such as was compatible with infectious endocarditis, that would be associated with the patient's clinical presentation or other objective findings. At the present time he would continue to be followed by history, exam, and future echocardiographic studies as deemed appropriate. 3. Pleural effusion He does have findings based on examination and his radiologic studies compatible with pleural effusions being more prominent on the left than the right. This may be residual from his previous pulmonary disease process. This may be contributing to his chest discomfort brought out by inspiration and positional changes. He has been evaluated by Dr. Durbin of pulmonology in the past. Based upon the conversation with Dr. Bryant from the [facility] hospitalist group a consult is being placed to Dr. Durbin to reassess the patient based upon the ongoing concerns. Overall, from a cardiovascular standpoint, the patient is remaining in the hospital, he is continuing to be monitored, he is being followed for any other acute changes that would suggest a change in diagnoses and a change in the need for additional diagnostic studies/therapy. In the interim he is being followed by internal medicine and he will be reassessed by Dr. Durbin from pulmonology. The patient's case was discussed and reviewed with the patient and Dr. Bryant. This note was generated using a voice recognition system and there may be incorrect words, spelling or punctuation that were not noted when reviewing the office note prior to saving.
[2020-01-04] VITALS (10 sets, daily range): BP systolic 104–116; BP diastolic 52–67; PULSE 52–71; RESP 14–16; TEMP 36.7–36.9; O2SAT 96–100
[2020-01-04 07:45] LABS: Absolute Lymphocyte Count 1.27 X10^3/uL (0.83-4.51); Absolute Neutrophil Count 5.8 X10^3/uL (2.0-7.7); Basophil# 0.06 X10^3/uL; Basophil% 0.6 % (0-1); Eosinophil# 1.47 X10^3/uL; Eosinophils% 15.4 % (0-5); Hematocrit 39.1 % (40-54); Hemoglobin 13.4 g/dL (13.0-16.5); Lymphocyte # 1.27 X10^3/ul (4.0); Lymphocyte % 13.3 % (19-41); Mean Corp Hgb Conc 34.3 g/dL (32-36); Mean Corpuscular Hgb 29.3 pg (27.0-32.0); Mean Corpuscular Volume 85.4 fL (80-94); Monocyte% 9.4 % (0-10); NRBC Flagged by Analyzer 0 % (0-5); Platelet Count 256 K/mm3 (150-450); RBC Distribution Width CV 11.7 % (11.6-14.6); RBC Distribution Width SD 36.2 fl (35.1-43.9); Red Blood Count 4.58 M/mm3 (4.6-6.2); White Blood Count 9.5 K/mm3 (4.4-11.0)
[2020-01-04 08:04] LABS: Anion Gap 5 (5-15); BUN 16 mg/dL (7-18); Calcium,Total 9.2 mg/dL (8.5-10.1); Chloride 104 mmol/L (98-107); EST Glomerular Filtration Rate 101 mL/min (>60); Est Glom Filt Rate - Afr Amer 122 mL/min (>60); Glucose 101 mg/dL (74-106); Potassium 4.3 mmol/L (3.5-5.1); Sodium Level 137 mmol/L (136-145)
[2020-01-04] MEDS: Ibuprofen 400 MG Tablet PO (12:15)
--- NOTE | 2020-01-04 12:21 | PN.CARD_ITS ---
Subjectve: The patient states he feels somewhat better with respect to his chest discomfort overall, somewhat better when he is semi-recumbent, but still with increasing discomfort with deep inspiration. Again he states the discomfort with deep inspiration is a sharp discomfort that radiates up his left chest area to his left neck/left shoulder area. He has no complaints of acute shortness of breath/dyspnea. There has been no obvious palpitations. He is there is been no obvious peripheral pitting edema. He has denied any nausea, emesis, diarrhea, or diaphoresis. He does state that prior to hospitalization he was taking nonsteroidal anti-inflammatory agents on a as needed basis. Objective: Vital Signs Temp Pulse Resp BP Pulse Ox 98.4 F 63 14 104/52 L 98 01/04/20 09:45 01/04/20 09:45 01/04/20 09:45 01/04/20 09:45 01/04/20 10:09 Oxygen Delivery Method Room Air Weight: 180 lb 8.937 oz Body Mass Index (BMI) 25.2 Intake and Output for Last 24 Hours 01/02/20 01/03/20 01/04/20 23:59 23:59 23:59 Intake Total 1680 / 1680 120 / 120 Balance 1680 / 1680 120 / 120 General: Awake, Alert, Oriented x 3, Cooperative, No Acute Distress HEENT: Atraumatic, Normocephalic, PERRL, EOMI, Sclera Non Icteric Oral: Moist Mucosa Neck: Supple, Good ROM, No JVD Lungs: Diminished Left Base, - - Cardiac apical area: Positive pleural friction rub Cardiovascular: Regular Rhythm, Normal S1, Normal S2 Murmur Murmur: Grade 2/6, Soft, Holosystolic, LLSB, [place] Vascular: No Carotid Bruits Abdomen: Bowel Sounds Present, Soft, Non Tender Extremities: No edema Neurological: No Focal Motor or Sensory Deficit Psych/Mental Status: Appropriate 01/04/20 07:23: WBC 9.5, RBC 4.58 L, Hgb 13.4, Hct 39.1 L, MCV 85.4, MCH 29.3, MCHC 34.3, Plt Count 256, MPV 10.0, Immature Gran % (Auto) 0.300, Neut % (Auto) 61.0, Lymph % (Auto) 13.3 L, [place] % (Auto) 9.4, Eos % (Auto) 15.4 H, Baso % (Auto) 0.6, Absolute Neuts (auto) 5.8, Nucleated RBC % 0 01/04/20 07:23: Sodium 137, Potassium 4.3, Chloride 104, Carbon Dioxide 28.0, Anion Gap 5, BUN 16, Creatinine 1.00, Est GFR (MDRD) Af Amer 122, Est GFR (MDRD) Non-Af 101, BUN/Creatinine Ratio 16.0, Glucose 101, Calcium 9.2 Rhythm: Sinus rhythm Medical Necessity - Tobacco Use Smoking Status: Never smoker Tobacco Use: Non-smoker Assessment/Plan 1. Chest pain The patient has an atypical chest discomfort. It is atypical from a cardiac standpoint as it is brought out by inspiration and/or change in position and has a sharp characteristic to it. These symptoms, especially in light of his recent pulmonary related issue and findings of bilateral pleural effusions being more prominent on the left than the right, and now findings of a pleural friction rub at the cardiac apical area, may be compatible with an underlying pleuritic component. His chest discomfort, despite the positional changes reported, does not appear to be classic for acute pericarditis at this time. So, he does not appear to have any obvious findings on examination such as a pericardial rub and no obvious findings on electrocardiogram or changes in his underlying cardiac enzymes that would go along with the diagnosis of acute pericarditis at this time. Also, his clinical presentation does not appear classic for concerns of underlying premature CAD or congenital coronary anomalies that would be bringing out symptoms of myocardial ischemia or other cardiovascular related symptoms/events at rest or with exertion. He has been an active young man and plays sports and is never had a report of any concerning symptoms from a cardiovascular standpoint at rest or with his exertional activities that would raise suspicion of underlying premature CAD or congenital coronary anomalies, etc. At the present time he can continue to be monitored. He should be considered for further evaluation by pulmonology based upon his history, examination, and objective findings. There are no immediate plans for additional cardiovascular diagnostic studies/intervention at this time. In the interim it appears he has been prescribed medical management with nonsteroidal anti-inflammatory therapy. 2. Cardiac murmur He does have a cardiac murmur on examination. Based upon his examination this may be compatible with underlying mitral valve regurgitation. His transthoracic echocardiogram does suggest mild regurgitation/insufficiency of the mitral, tricuspid, and pulmonic valves. It did not appear to suggest any obvious findings, such as was compatible with infectious endocarditis, that would be associated with the patient's clinical presentation or other objective findings. At the present time he would continue to be followed by history, exam, and future echocardiographic studies as deemed appropriate. 3. Pleural effusion He does have findings based on examination and his radiologic studies compatible with pleural effusions being more prominent on the left than the right. This may be residual from his previous pulmonary disease process. This may be contributing to his chest discomfort brought out by inspiration and positional changes based upon his history, examination findings, and his radiologic studies. He has been evaluated by Dr. Durbin of pulmonology in the past. Based upon the conversation with Dr. Bryant from the [facility] hospitalist group a consult is being placed to Dr. Durbin to reassess the patient based upon the ongoing concerns. In the interim he is now on scheduled nonsteroidal anti-inflammatory therapy. Overall, from a cardiovascular standpoint, the patient is remaining in the hospital, he is continuing to be monitored, he is being followed for any other acute changes that would suggest a change in diagnoses and a change in the need for additional diagnostic studies/therapy. In the interim he is being followed by internal medicine and he will be reassessed by Dr. Durbin from pulmonology. The patient's case was discussed and reviewed with the patient and Dr. Bryant. This note was generated using a voice recognition system and there may be incorrect words, spelling or punctuation that were not noted when reviewing the office note prior to saving.
--- NOTE | 2020-01-04 13:01 | PCM.PN.HOSP ---
Patient Problems: Active and Suspected Problems (Last Reviewed 12/11/19 @ 07:19 by Leena Martínez) Chest pain (Acute) Heart murmur (Acute) Pleural effusion (Acute) Reason for Visit: Patient complain of left lateral chest pain on deep inspiration. No fever or chills. Vitals are stable. No tachypnea or hypoxia Vitals/I&O's: Vital Signs Temp Pulse Resp BP Pulse Ox 98.4 F 63 14 104/52 L 98 01/04/20 09:45 01/04/20 09:45 01/04/20 09:45 01/04/20 09:45 01/04/20 10:09 Oxygen Delivery Method Room Air Weight: 180 lb 8.937 oz Body Mass Index (BMI) 25.2 Intake and Output for Last 24 Hours 01/02/20 01/03/20 01/04/20 23:59 23:59 23:59 Intake Total 1680 / 1680 840 / 840 Balance 1680 / 1680 840 / 840 General: Alert, Oriented x3, Cooperative HEENT: Atraumatic, PERRLA, EOMI, Normocephalic Neck: Supple, No JVD, Negative Carotid Bruits Lungs: Normal air movement, No rhonchi, No wheeze, No rales, - - Pleural rub heard at the end of deep inspiration on left lateral chest. Cardiovascular: Regular rate, Regular Rhythm, Normal S1, Normal S2, No murmurs, No rub noted, No Gallop, - - Sinus rhythm on quality assurance monitor chassis. No pericardial rub heard. Abdomen: Bowel Sounds Present, Soft, Non Tender, Non-Distended Extremities: No edema, Capillary Refill Less than 3 Seconds Skin: No rashes, No breakdown Musculoskeletal: No Tenderness to Palpation of Joints or Extremities Neurological: Cranial nerves II-XII grossly intact Psych/Mental Status: Normal Affect, Appropriate Laboratory Results 01/04/20 07:23: WBC 9.5, RBC 4.58 L, Hgb 13.4, Hct 39.1 L, MCV 85.4, MCH 29.3, MCHC 34.3, RDW Std Deviation 36.2, RDW Coeff of Piter 11.7, Plt Count 256, MPV 10.0, Immature Gran % (Auto) 0.300, Neut % (Auto) 61.0, Lymph % (Auto) 13.3 L, [place] % (Auto) 9.4, Eos % (Auto) 15.4 H, Baso % (Auto) 0.6, Absolute Neuts (auto) 5.8, Absolute Lymphs (auto) 1.27, Nucleated RBC % 0 01/04/20 07:23: Sodium 137, Potassium 4.3, Chloride 104, Carbon Dioxide 28.0, Anion Gap 5, BUN 16, Creatinine 1.00, Estim Creat Clear Calc 125.50, Est GFR (MDRD) Af Amer 122, Est GFR (MDRD) Non-Af 101, BUN/Creatinine Ratio 16.0, Glucose 101, Calcium 9.2 Current Medications Glucagon () 1 mg IM .X1 PRN PRN Reason: Hypoglycemia Sodium Chloride () 250 mls @ 15 mls/hr IV .[id number] PRN PRN Reason: Saline Flush Sodium Chloride () 250 mls @ 15 mls/hr IV .[id number] PRN PRN Reason: Additional IVPB Infusion Dextrose (Dextrose 10%-Water) 250 mls @ 999 mls/hr IV .Q16M PRN; Protocol PRN Reason: HYPOGLYCEMIA Ibuprofen (Motrin) 400 mg PO Q6 [facility] Last Admin: 01/04/20 12:15 Dose: 400 mg Documented by: Nitroglycerin (Nitrostat) 0.4 mg SUBLINGUAL Q5M PRN PRN Reason: CARDIAC/CHEST PAIN Ondansetron HCl (Zofran) 4 mg IV Q8H PRN PRN PRN Reason: NAUSEA/VOMITING Pantoprazole Sodium (Protonix) 40 mg PO DAILY [facility] Last Admin: 01/04/20 12:16 Dose: Not Given Documented by: Sodium Chloride () 10 - 40 ml IV UD PRN PRN Reason: SALINE FLUSH STROKE Vital Signs/Narrative: Vital Signs Temp Pulse Resp BP Pulse Ox 01/04/20 10:09 98 01/04/20 09:45 98.4 F 63 14 104/52 L 97 Medical Necessity - Tobacco Use Smoking Status: Never smoker Tobacco Use: Non-smoker Assessment/Plan All Active Problems (Last Reviewed 12/11/19 @ 07:19 by Leena Martínez) Chest pain (Acute) Heart murmur (Acute) Pleural effusion (Acute) This is a 19 y/o admitted with a complaint of midsternal chest pain with radiation to neck and left ear. Chest pain. 1. Chest pain and new onset murmur: Patient is being admitted in PCU. Serial troponin enzymes are negative. 2D echo was done 2D echo shows EF 65% with a normal lateral systolic function, mild MR, mild TR. Mild pulmonary insufficiency. Small left pleural effusion. RVSP 24 mmHg. There is no obvious vegetation found. Earlier patient was seen in pulmonary clinic on December 07, 2019 with CTA finding of ill-defined nodular opacities in both lungs more prominent in the right lower lobe suggesting septic emboli or patchy pneumonia. He followed up with pulmonology who did not think that patient would have septic emboli. Recommended follow-up CT in [address] abdomen was done and shows decreasing bilateral lung nodules likely infectious in nature. Small bilateral pleural effusions. 01/04 2020: Discussed with case filler. Histologic Technician was called and Dr. Durbin agreed to see patient tomorrow. Started on ibuprofen 600 mg every 6 hourly along with Protonix. Earlier in pulmonary clinic patient was advised NSAID but he was taking as needed for pain. 2D echo reviewed. EF 65% with mild MR, mild TR, mild pulmonary insufficiency. Mild left pleural effusion. No evidence of diastolic solution. RVSP [address] chest reviewed and shows a small left pleural effusion and trace right pleural effusion. In my opinion, pleural effusion is not enough to be tapped 2. SIRS criteria with leukocytosis and tachypnea: Currently patient is on baseline no fever or chills. No hypoxia or tachypnea. No clear evidence of infection. Monitor temperature. Culture negative for 24 hours. No fever during hospital stay. No indication for antibiotic DVT prophylaxis: Lovenox Clinical Impression(s) from Imaging Studies Chest CTA 01/03/20 05:05 IMPRESSION: 1. No pulmonary embolus detected. 2. Decrease in bilateral lung nodules, likely infectious in nature. 3. Small bilateral pleural effusions. Individualized dose optimization techniques were used for this CT. * Laboratory Results 01/03/20 04:30: WBC 13.1 H, RBC 4.60, Hgb 13.3, Hct 40.0, MCV 87.0, MCH 28.9, MCHC 33.3, RDW Std Deviation 36.2, RDW Coeff of Piter 11.5 L, Plt Count 252, MPV 10.0, Immature Gran % (Auto) 0.500, Neut % (Auto) 65.1, Lymph % (Auto) 12.8 L, [place] % (Auto) 8.5, Eos % (Auto) 12.5 H, Baso % (Auto) 0.6, Absolute Neuts (auto) 8.5 H, Absolute Lymphs (auto) 1.68, Nucleated RBC % 0, ESR 13 01/03/20 04:30: D-Dimer Quant (PE/DVT) 3.48 H* 01/03/20 04:30: Sodium 137, Potassium 4.2, Chloride 102, Carbon Dioxide 29.0, Anion Gap 6, BUN 19 H, Creatinine 1.10, Estim Creat Clear Calc 114.09, Est GFR (MDRD) Af Amer 110, Est GFR (MDRD) Non-Af 91, BUN/Creatinine Ratio 17.3, Glucose 115 H, Calcium 9.0, Troponin I < 0.015 01/03/20 08:00: Troponin I < 0.015 01/03/20 10:20: Troponin I < 0.015 01/03/20 10:20: Total Bilirubin 0.70, Direct Bilirubin 0.18, GGT 15, AST 15, ALT 20, Alkaline Phosphatase 117, Total Protein 7.5, Albumin 3.9, Globulin 3.6 01/03/20 10:50: Urine Opiates Screen NEGATIVE, Urine Methadone Screen NEGATIVE, Ur Barbiturates Screen NEGATIVE, Ur Phencyclidine Scrn NEGATIVE, Ur Amphetamines Screen NEGATIVE, U Methamphetamin-MDMA NEGATIVE, U Benzodiazepines Scrn NEGATIVE, Urine Cocaine Screen NEGATIVE, U Cannabinoids Screen NEGATIVE, Ur Drug Screen Comment Code Visit Inpatient E&M: 33607 Subs Hosp L2
[2020-01-04] MEDS: Ibuprofen 600 MG Tablet PO ×2 (17:32→23:04)
[2020-01-05] VITALS (7 sets, daily range): BP systolic 100–108; BP diastolic 58–64; PULSE 47–59; RESP 16–18; TEMP 36.6–36.8; O2SAT 97–99
[2020-01-05] MEDS: Ibuprofen 600 MG Tablet PO ×2 (05:31→12:18)
--- NOTE | 2020-01-05 13:24 | PCM.CONS.PUL ---
Problem List (1) Abnormal CT scan of lung Status: Acute (2) Chest pain Status: Acute Qualifiers: Chest pain type: chest pain on breathing Qualified Code(s): R07.1 - Chest pain on breathing (3) Heart murmur Status: Acute (4) Pleural effusion Status: Acute Reason for Consult Date of Consultation: 01/05/20 Reason for Consultation: Chest pain History of Present Illness: The patient is a 19 year old M, with no significant past medical history outside of pertussis, who presents for evaluation secondary to chest pain. Patient reportedly had pertussis back in September and has persisted in a cough with intermittent chest pain. Patient was seen earlier in December and had a CT angiogram showing abnormal infiltrates which were concerning for multilobar pneumonia versus possible septic emboli. Patient was seen by Dr. Durbin in our office and was thought that if this was resolving. Patient did have some pleuritic chest pain at that time, but was treated with NSAIDs. Patient has not had any hemoptysis reported. Patient is not reporting any fevers, chills, nausea or vomiting. Patient describes the chest pain as sharp and worse with deep inhalation. 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 In the ER, patient continued to have pleuritic type chest pains. Patient did have a new murmur noted in the ER. Chest x-ray was negative. CT scan of the chest showed no [place] emboli and improvement in the infiltrates. Patient did have some left pleural effusion and mediastinal lymphadenopathy appreciated. Patient was admitted to the floor for further evaluation. Since admission, patient reports his chest pain has completely resolved. Patient states that he has not tested it but feels that he is able to take a deep breath without complications. Patient denied any wheezing. Patient did have some cough with deep inhalation, but was unclear if this was related to the chest pain. Patient has not had any increase in lower extremity swelling or constitutional symptoms such as fever, chills, nausea or vomiting. Patient denies any recent exposures. Patient does report that he has been able to resume some activity with his recreational sports team. Review of systems otherwise negative from a constitutional, HEENT, respiratory, cardiovascular, GI, genitourinary, musculoskeletal, skin, neurologic, psychiatric and hematologic system unless stated above. Past Medical History Allergies No Known Allergies Allergy (Verified 12/10/19 00:35) Home Medications: Ambulatory Orders Medication Instructions Recorded NK 12/10/19 Surgical History: no surgical history Psychiatric History: No pertinent psych hx Lives: Roommate Smoking Status: Never smoker Tobacco Use: Non-smoker Alcohol: None Drugs: None - *Family History Maternal History Items: No pertinent history Paternal History Items: No pertinent history Review of Systems Comment: See HPI Patient Problems: Active and Suspected Problems (Last Reviewed 12/11/19 @ 07:19 by Leena Martínez) Chest pain (Acute) Heart murmur (Acute) Pleural effusion (Acute) Abnormal CT scan of lung (Acute) Subjective: Case was personally reviewed with Dr. Durbin. Recommended that CT scan of the chest in 2 months can be discontinued. Patient will still need to be evaluated as an outpatient for possible asthma and resolution of eosinophilia. Objective: All imaging was personally reviewed. Echocardiogram did not show any valvular abnormalities or vegetations. CT scan of the chest was as described in HPI and appears to be improved compared to previous. Laboratory work-up does show significant eosinophilia compared to previous outpatient examination - Physical Exam Vitals/I&O's: Vital Signs Temp Pulse Resp BP Pulse Ox 36.6 C 53 L 16 100/60 98 01/05/20 08:50 01/05/20 08:50 01/05/20 08:50 01/05/20 08:50 01/05/20 08:50 Oxygen Delivery Method Room Air Weight: 81.9 kg Body Mass Index (BMI) 25.2 Intake and Output for Last 24 Hours 01/03/20 01/04/20 01/05/20 23:59 23:59 23:59 Intake Total 1680 / 1680 1680 / 1680 600 / 600 Balance 1680 / 1680 1680 / 1680 600 / 600 General: Alert, Oriented x3, Cooperative, No apparent distress, Well developed, Well nourished, - - No conversational dyspnea. Speaking in full sentences. HEENT: Atraumatic, PERRLA, EOMI, Normocephalic Oral: Moist Mucosa, No Gingival or Mucosal Lesions/ Ulcerations Neck: Supple, No JVD, No Nodes, Trachea Midline Lungs: Clear to auscultation, No rhonchi, No wheeze, No rales Cardiovascular: Regular rate, Regular Rhythm, Normal S1, Normal S2, No murmurs, No rub noted, No Gallop Abdomen: Bowel Sounds Present, Soft, Non Tender, Non-Distended Extremities: No clubbing, No cyanosis, No edema, Capillary Refill Less than 3 Seconds Skin: No rashes, No breakdown Musculoskeletal: No Tenderness to Palpation of Joints or Extremities Lymphatic: No Cervical, Supraclavicular, or Inguinal Adenopathy Neurological: Cranial nerves II-XII grossly intact, Neuro grossly intact, Motor Exam 5/5 strength throughout Psych/Mental Status: Alert and oriented to time, place, person, mood and affect Current Medications Glucagon () 1 mg IM .X1 PRN PRN Reason: Hypoglycemia Sodium Chloride () 250 mls @ 15 mls/hr IV .[id number] PRN PRN Reason: Saline Flush Sodium Chloride () 250 mls @ 15 mls/hr IV .[id number] PRN PRN Reason: Additional IVPB Infusion Dextrose (Dextrose 10%-Water) 250 mls @ 999 mls/hr IV .Q16M PRN; Protocol PRN Reason: HYPOGLYCEMIA Ibuprofen (Motrin) 600 mg PO Q6 [facility] Last Admin: 01/05/20 12:18 Dose: 600 mg Documented by: Nitroglycerin (Nitrostat) 0.4 mg SUBLINGUAL Q5M PRN PRN Reason: CARDIAC/CHEST PAIN Ondansetron HCl (Zofran) 4 mg IV Q8H PRN PRN PRN Reason: NAUSEA/VOMITING Pantoprazole Sodium (Protonix) 40 mg PO DAILY [facility] Last Admin: 01/05/20 08:52 Dose: Not Given Documented by: Sodium Chloride () 10 - 40 ml IV UD PRN PRN Reason: SALINE FLUSH Clinical Impression(s) from Imaging Studies Chest CTA 01/03/20 05:05 IMPRESSION: 1. No pulmonary embolus detected. 2. Decrease in bilateral lung nodules, likely infectious in nature. 3. Small bilateral pleural effusions. Individualized dose optimization techniques were used for this CT. at 0605 Reported and signed by: Lilibeth Mejia MD Electronically Signed: Lilibeth Mejia MD at 6:05 EST Tel , Service support , Assessment/Plan All Active Problems (Last Reviewed 12/11/19 @ 07:19 by Leena Martínez) Chest pain (Acute) Heart murmur (Acute) Pleural effusion (Acute) Abnormal CT scan of lung (Acute) RECOMMENDATIONS: 1. Okay to continue conservative therapy with NSAIDs 2. Follow-up with nurse practitioner 2 weeks after discharge 3. Okay to discontinue scheduled CT of the chest in 2 months 4. Outpatient evaluation for asthma 5. Call office if develops hemoptysis, recurrent chest pain or new constitutional symptoms IMPRESSIONS: 1. Pleuritic chest pain/eosinophilia Unclear etiology at this time. Patient does have some improvement in lung nodules noted. Patient is responding to conservative therapy with NSAIDs at this time. Of note, patient does have a significant peripheral eosinophilia compared to previous lab draw. Unclear if this indicates histoplasmosis as a possible etiology. Asthma would also be a consideration. This can be evaluated as an outpatient. Would not recommend antibiotics at this time. We will hold off on steroid therapy unless patient becomes refractory to NSAID therapy. Okay to discharge from a pulmonary perspective with a follow-up in 2 weeks with nurse practitioner. Talk screen is negative. No valvular abnormalities or vegetations have been noted and patient does not have a murmur on my examination. Code Visit Inpatient E&M: 16934 Init Hosp L2
--- NOTE | 2020-01-05 14:24 | DCINST_ITS ---
- Discharge Diagnoses Current Active Problems: Current Active and Chronic Problems (Last Reviewed 12/11/19 @ 07:19 by Leena Martínez) Chest pain (Acute) Heart murmur (Acute) Pleural effusion (Acute) Abnormal CT scan of lung (Acute) You will use the following diet at home:: No restrictions Your food should be the consistency of: Regular Your liquids should be the consistency of: Regular/Thin Discharge Activity: - - slowly ease back into your normal active routine. Call your doctor if you observe: Fever of 101 or Higher, Shortness of breath Allergies/Adverse Reactions: Allergies No Known Allergies Allergy (Verified 12/10/19 00:35) Medications to take at Discharge Ibuprofen [Motrin] 600 mg PO Q6 tablet 01/05/20 Omeprazole [Prilosec] 20 mg PO DAILY #1 capsule 01/05/20 The following prescriptions were given: Omeprazole [Prilosec] 20 mg PO DAILY #1 capsule Primary Care Physician: Lukas Tee MD [Primary Care Provider] - Test Results: Test results from this visit will be discussed in further detail at your follow- up appointment, if applicable. Please Follow Up With: Patricia Clinton NP-C When: 2 weeks Proposed Discharge Date: 01/05/20
--- NOTE | 2020-01-05 14:26 | DS.PCM_ITS ---
Discharge Date and Diagnosis - Problem List Patient Problems: Active and Suspected Problems (Last Reviewed 12/11/19 @ 07:19 by Leena Martínez) Chest pain (Acute) Heart murmur (Acute) Pleural effusion (Acute) Abnormal CT scan of lung (Acute) Date of Admission: 01/03/20 Date of Discharge: 01/05/20 - Primary Discharge Diagnosis Active and Suspected Problems (Last Reviewed 12/11/19 @ 07:19 by Leena Martínez) Chest pain (Acute) Heart murmur (Acute) Pleural effusion (Acute) Abnormal CT scan of lung (Acute) SIRS, source unknown Eosinophilia Hospital Course and Treatment Imaging Results: Clinical Impression(s) from Imaging Studies Chest CTA 01/03/20 05:05 IMPRESSION: 1. No pulmonary embolus detected. 2. Decrease in bilateral lung nodules, likely infectious in nature. 3. Small bilateral pleural effusions. Individualized dose optimization techniques were used for this CT. at 0605 Reported and signed by: Lilibeth Mejia MD Electronically Signed: Lilibeth Mejia MD at 6:05 EST Tel , Service support , Drs. Durbin and Lance, pulmonary Dr. Moran: cardiology Operations: None Procedures: None Summary of Care Provided: The patient is a 19 year old M presents with chest pain. CT chest showed no pulmonary embolism, decrease in bilateral lung nodules from previous. Small bilateral pleural effusions. Seen by cardiology who did not feel that it was classic for pericarditis. Patient was seen by pulmonology who recommended long- term NSAIDs and follow-up in the office in 2 weeks time. Overall patient is doing well and will be discharged home. Patient advised to present back to the hospital if he develops any kind of hemoptysis. Also noted to have peripheral eosinophilia: Eosinophils on the December were 2.4 and on 03 January was 15.4. Etiology is undetermined at this time but presumably related with the pleural effusion. Possible this may be pleuritis. [] Patient Problems: Active and Suspected Problems (Last Reviewed 12/11/19 @ 07:19 by Leena Martínez) Chest pain (Acute) Heart murmur (Acute) Pleural effusion (Acute) Abnormal CT scan of lung (Acute) - Physical Exam Vitals/I&O's: Vital Signs Temp Pulse Resp BP Pulse Ox 36.6 C 53 L 16 100/60 98 01/05/20 08:50 01/05/20 08:50 01/05/20 08:50 01/05/20 08:50 01/05/20 08:50 Oxygen Delivery Method Room Air Weight: 81.9 kg Body Mass Index (BMI) 25.2 Intake and Output for Last 24 Hours 01/03/20 01/04/20 01/05/20 23:59 23:59 23:59 Intake Total 1680 / 1680 1680 / 1680 600 / 600 Balance 1680 / 1680 1680 / 1680 600 / 600 General: Alert, No apparent distress HEENT: Atraumatic, Normocephalic Oral: Moist Mucosa, No Gingival or Mucosal Lesions/ Ulcerations Neck: No Nodes, Trachea Midline Lungs: Clear to auscultation, Normal air movement, No rhonchi, No wheeze Current Medications Glucagon () 1 mg IM .X1 PRN PRN Reason: Hypoglycemia Sodium Chloride () 250 mls @ 15 mls/hr IV .[id number] PRN PRN Reason: Saline Flush Sodium Chloride () 250 mls @ 15 mls/hr IV .[id number] PRN PRN Reason: Additional IVPB Infusion Dextrose (Dextrose 10%-Water) 250 mls @ 999 mls/hr IV .Q16M PRN; Protocol PRN Reason: HYPOGLYCEMIA Ibuprofen (Motrin) 600 mg PO Q6 [facility] Last Admin: 01/05/20 12:18 Dose: 600 mg Documented by: Nitroglycerin (Nitrostat) 0.4 mg SUBLINGUAL Q5M PRN PRN Reason: CARDIAC/CHEST PAIN Ondansetron HCl (Zofran) 4 mg IV Q8H PRN PRN PRN Reason: NAUSEA/VOMITING Pantoprazole Sodium (Protonix) 40 mg PO DAILY [facility] Last Admin: 01/05/20 08:52 Dose: Not Given Documented by: Sodium Chloride () 10 - 40 ml IV UD PRN PRN Reason: SALINE FLUSH Discharge Diet: No Restrictions Discharge Activity: - - slowly ease back into your normal active routine. Call your doctor if you observe: Fever of 101 or Higher, Shortness of breath Home Medications: Medications to take at Discharge Ibuprofen [Motrin] 600 mg PO Q6 tablet 01/05/20 Omeprazole [Prilosec] 20 mg PO DAILY #1 capsule 01/05/20 Following Prescrptions Were Given to Patient: Omeprazole [Prilosec] 20 mg PO DAILY #1 capsule Primary Care Physician: Lukas Tee MD [Primary Care Provider] - Please Follow Up With: Patricia Clinton NP-C When: 2 weeks Disposition: Home Minutes spent on discharge:: 28 Patient Condition:: Good Medical Necessity - Tobacco Use Smoking Status: Never smoker Tobacco Use: Non-smoker Meaningful Use Info Meaningful Use Diagnoses (Choose all that apply): None applicable Code Visit Inpatient E&M: 85296 Disch Hosp
== END 2020-01-05 14:25 | disposition home or self-care (01) ==
LOC: ED 06:10 → PCU 06:29
PROVIDERS: Internal Medicine; Admitting Provider Student in an Organized Health Care Education/Training Program; Emergency Provider Emergency Medicine; PCP Pediatrics
DX: R07.89 Other chest pain (principal); R01.1 Cardiac murmur, unspecified; R65.10 Systemic inflammatory response syndrome (SIRS) of non-infectious origin without acute organ dysfunction; J90 Pleural effusion, not elsewhere classified; R94.2 Abnormal results of pulmonary function studies; D72.1 Eosinophilia
CPT/HCPCS: 36415; 71275; 80048; 80076; 80307; 82977; 84484; 85025; 85379; 85652; 87040; 93005; 93306; 99218; 99285; Q9967; A4216; G0378